=== PATIENT | female | born 1960 | race Caucasian/White ===

== ENCOUNTER 2019-10-27 10:29 | Observation (INO) | payer OTHER ==
[~2019-10-27] VITALS: Ht 165.1 cm; Wt 96.8 kg
[~2019-10-27 10:29] MED LIST: ALBUTEROL2.5 MG/0.5 INH; ASMANEX220 MC1 IH; ASPIR-LOW81 MG PO; ATIVAN0.5 MG PO; BENGAY113 GM TOP; BUDEPRION SR150 MG PO; CALCIUM 600 +1 EAC8 PO; CALCIUM CARBON500 MG PO; DAILY MULTIPLE1 EACH PO; DSS100 MG PO; ERGOCALCIF50000 UNIT PO; FAMOTIDINE20 MG PO; FLEXERIL10 MG PO; INSPIRATION1 EACH MC; LENZAPATCH 4%-1 EACH TOP; METHOCARBAMOL750 MG PO; METOPROLOL TART50 MG PO; MYVITALIFE1 EACH PO; NICORETTE4 M1 BUCCAL; NORCO 10-325 T1 EACH PO; PERCOCET 5-3251 EACH PO; PLAQUENIL200 MG PO; PREDNISONE5 MG PO; PYRIDIUM200 MG PO; SEREVENT DISKU1 PUFF IH; TRAMADOL HCL50 MG PO; ULTRAM50 MG PO
--- OUTSIDE RECORDS SUMMARY | 2019-10-27 10:32 | XMS ---
PreManage Notification: KMA MONTEMAYOR Security Director Of Graduate Admissions Events No recent Security Events currently on file [facility] There are no care providers on record at this time. Manoj has no Care Guidelines for this patient. Alvin VISIT COUNT (12 MO.) 1 ZULEIKA Jian TOTAL 1 NOTE: Visits indicate total known visits. ED/C VISIT TRACKING (12 MO.) 10/27/2019 10:30 ZULEIKA Velázquez OR TYPE: Emergency COMPLAINT: - POSSIBLE PNEUMONIA INPATIENT VISIT TRACKING (12 MO.) No inpatient visits to display in this time frame [id number]
[2019-10-27] MEDS ORDERED: CITALOPRAM HBR10 MG PO (10:46)
[2019-10-27] MEDS ORDERED: PROPRANOLOL HCL20 MG PO (10:47)
--- NOTE | 2019-10-27 15:28 | NUR ---
1515: Pt to room 107. RR 16 with a sat of 96% on 2l via nc and other vital signs stable. On arrival she asked about eating and states, "I'm starving". Pt spent several minutes ordering food for now, dinner and breakfast. Lung sounds coarse throughout. Pt states her breathing feels in no distress and "just a little tiny shortness of breath". Pt oriented to her room and the use of her call piedra.
--- NOTE | 2019-10-27 16:44 | NUR ---
Pt resting in her bed recieving a breathing tx at this time. Radha states her breathing continues to feel better with the treatments she has been receiving.
--- NOTE | 2019-10-27 17:03 | NUR ---
PT AMBULATED TO THE BR WITH ASSIST AND VOIDED. UA SENT TO THE LAB ORDERED. PT BACK TO BED AND HER RR INCREASED TO 26 WITH ACTIVITY. SHE IS NOW SITTING AT THE BEDSIDE EATING HER DINNER.
--- NOTE | 2019-10-27 17:45 | NUR ---
UA RESULTS CALLED TO DR SAWANT.
--- NOTE | 2019-10-27 18:07 | EKG ---
[facility] [address] [place], [place] [address] Signed Sinus rhythm with short VA Low voltage QRS Borderline ECG No previous ECGs available Confirmed by LULU SAWANT DO ([id number]) on 10/27/2019 6:06:53 PM Electronically Signed By: LULU SAWANT DO 10/27/19 1807 PATIENT NAME: KAM MONTEMAYOR Electrocardiogram DATE OF : 60 PHYSICIAN: LULU SAWANT DO REPORT #: [id number] REPORT IS CONFIDENTIAL AND NOT TO BE RELEASED WITHOUT AUTHORIZATION
--- NOTE | 2019-10-27 18:28 | NUR ---
PATIENT UP TO BATHROOM AND BACK TO BED, 1PA. CALL LIGHT IN REACH. NO FURTHER NEEDS AT THIS TIME.
--- NOTE | 2019-10-27 19:47 | NUR ---
ROOM CHECK. SBA TO THE BATHROOM. REFUSED TO USE WALKER THIS JUICE SCALEMAN OFFERED. PATIENT IS WITH 2L VIA NC. PATIENT IS BACK IN BED.
--- NOTE | 2019-10-27 20:08 | NUR ---
REGULAR FOND DU LAC COLA PROVIDED PER PATIENT'S REQUEST.
--- NOTE | 2019-10-27 21:35 | NUR ---
PT C/O CHRONIC BACK PAIN, DECLINES TO TAKE TYLENOL, DR SAWANT NOTIFIED VIA PHONE. NEW ORDERS OBTAINED FOR OXYCONTIN 10MG PO Q8H/PRN PAIN, TYLENOL 500MG PO Q6H PRN PAIN
--- NOTE | 2019-10-27 21:50 | NUR ---
O2 2L NC, COOP WITH ASSESSMENT, C/O BACK AND GENERAL PAIN 02/18, MEDICATED WITH OXYCONTIN 10MG PO. FLUIDS AND CALL LIGHT AT BEDSIDE
--- NOTE | 2019-10-27 23:42 | NUR ---
RESTING, O2 2L IN PLACE, NO FURTHER C/O PAIN.CALL LIGHT AT BEDSIDE, HOB ELEVATED
--- NOTE | 2019-10-28 01:08 | NUR ---
resting, o2 2l nc inplace, no resp distress, turns self in bed. call light at bedside
--- NOTE | 2019-10-28 03:43 | NUR ---
UP TO BR W/O ASSIST, VOIDED, BACK TO BED, FRESH WATER AND POP GIVEN ON REQUESTS. NO SOB NOTED WITH EXERTION. O2 2L NC, EXP WHEEZING/COARSE SOUNDS. NO C/O PAIN. CALL LIGHT AT BEDSIDE
--- NOTE | 2019-10-28 04:53 | NUR ---
PT AWAKE, AUGUSTINE RONKET FOR CHRONIC BACK DISCOMFORT. WAS MEDICATED 1X WITH OXYCONTIN 10MG PO BACK PAIN. ON O2 2LNC, RECEIVING NEB TX AND SOLUMEDROL LUNGS CONTINUE TO HAVE COARSE AND EXP WHEEZING SOUNDS. WAS SLIGHTLY SOB WHEN RETURNING FROM [place] ON SHIFT, MUCH IMPROVED AT THIS TIME. TOLERATING DIET AND FLUIDS WELL, NO N/V, REQUIRES 1PA/ TO INDEPENDENT IN ROOM. LEGS + EDEMA BILAT ELEVATED AT TIMES. WAS VERY ANXIOUS AT BEGINING OF SHIFT. CALMER NOW. COOP WITH PROCEDURES AND ASSESSMENT.
--- NOTE | 2019-10-28 06:21 | NUR ---
PT TURNS SELF IN BED, C/O BACK AND GENERAL 03/20 PAIN. MEDICATED WITH OXYCONTIN 10MG PO. WARM BLANKET TO BACK.
--- NOTE | 2019-10-28 07:34 | NUR ---
REPORT RECEIVED FROM GRISELDA ROWE. PT RESTING WITH EYES CLOSED.
--- NOTE | 2019-10-28 08:30 | NUR ---
Spoke with Radha. She lives in [place] and shares a trailer with her landlord. States health has deteriorated to the point she seldom leaves her trailer. Pt has poor finances as use [employer] program as well as the food [employer]ant[employer]. Pt. would like to dc to home on discharge. Gave her the name and address of the second food bank [facility] [place] [facility]. Also discussed [facility] transportation, pt was not aware she was elegible for transport. Discussed [facility] and I will place referral for resources. She states understanding and agrees to phone call from Kortney Howell.
--- NOTE | 2019-10-28 08:53 | NUR ---
pT SITTING UP IN BED, EATING BREAKFAST. ALERT, PLEASANT, COOPERATIVE. tOOK HER SCHEDULED MEDS WHOLE WITH WATER.
--- NOTE | 2019-10-28 11:02 | NUR ---
Pt in the room with respiratory therapist. Education about smoking cassation
--- NOTE | 2019-10-28 11:33 | NUR ---
1035: Inhaler instruction with spacer performed with patient. Written instruction provided with demonstration and demo back. Based on modfied dyspnea scale, history of multiple copd admission and history of asthma, it was recomended to clinical pharmacy that a LAMA be added to the patient's care plan at discharge. Pt already has ICS and LABA voerage ordered for home. Note sent to case managment to ask for pulmonary rehab order at discharge.
--- NOTE | 2019-10-28 11:52 | NUR ---
PT SITTING ON SIDE OF BED, GAZING OUT WINDOW. SHE IS PLEASANT, DID SAY THAT SHE FELT JUST A TINY BIT BETTER. ENCOURAGED PT TO CELEBRATE ANY LITTLE WIN, PT KNODDED IN AGREEMENT. PT THANKED ME FOR COMING IN, GAVE BLESSING. WILL FOLLOW NEEDED
[2019-10-28] MEDS ORDERED: OXYCODONE HCL10 MG PO (12:25)
[2019-10-28] MEDS ORDERED: PROAIR HFA8.5 GM INH (12:48)
[2019-10-28] MEDS ORDERED: DULERA 200 MCG/13 GM INH (12:48)
--- NOTE | 2019-10-28 13:00 | NUR ---
SPOKE WITH PT REGARDING MEDICATIONS. STATES SHE NEEDS THE OXY CHANGED IT IS NOT WHAT SHE TAKES AT HOME. READ THE MED FROM THE [facility] TO HER AND IT IS WHAT SHE TAKES AT HOME JUST A DIFFERENT BRAND. SHE STATES THAT HERS IS A DIFFERENT COLOR AND WORKS BETTER FOR HER. ALSO WOULD LIKE TO BE DISCHARGED IF POSSIBLE.
[2019-10-28] MEDS ORDERED: DOXYCYCLINE HY100 MG PO (13:41)
[2019-10-28] MEDS ORDERED: SPIRIVA18 MCG INH (13:43)
[2019-10-28] MEDS ORDERED: PREDNISONE20 MG PO (13:44)
[2019-10-28] MEDS ORDERED: IPRAT-ALBUT 0.5-3 ML INH (13:46)
[2019-10-28] MEDS ORDERED: LASIX20 MG PO (13:50)
[2019-10-28] MEDS ORDERED: POTASSIUM CHLO10 MEQ PO (13:50)
--- NOTE | 2019-10-28 14:04 | NUR ---
PATIENTS VITALS ARE DONE, PATIENT VISITING WITH DOCTOR
== END 2019-10-28 15:24 | disposition home or self-care (01) ==
LOC: ED 10:29 → MS 10:31
PROVIDERS: ADMIT Student in an Organized Health Care Education/Training Program
DX: J44.1 Chronic obstructive pulmonary disease with (acute) exacerbation (principal); J96.91 Respiratory failure, unspecified with hypoxia; N39.0 Urinary tract infection, site not specified; B19.20 Unspecified viral hepatitis C without hepatic coma; K74.60 Unspecified cirrhosis of liver; M06.9 Rheumatoid arthritis, unspecified; F39 Unspecified mood [affective] disorder; K21.9 Gastro-esophageal reflux disease without esophagitis; I10 Essential (primary) hypertension; F17.200 Nicotine dependence, unspecified, uncomplicated; Z79.899 Other long term (current) drug therapy; Z79.82 Long term (current) use of aspirin; Z88.1 Allergy status to other antibiotic agents; Z88.8 Allergy status to other drugs, medicaments and biological substances
CPT/HCPCS: 36415; 71045; 80053; 80074; 81001; 83605; 83735; 83880; 85025; 85651; 86140; 93005; 93010; 94640; 94664; 96360; 96374; 96375; 96376; 99285-25; 99406; G0378; J0696; J1100; J1940; J2930; J7030

== ENCOUNTER 2020-01-07 09:19 | Emergency (ER) | payer OTHER ==
[~2020-01-07] VITALS: Ht 165.1 cm; Wt 100.0 kg
[~2020-01-07 09:19] MED LIST changes: +CITALOPRAM HBR10 MG PO; +DOXYCYCLINE HY100 MG PO; +DULERA 200 MCG/13 GM INH; +IPRAT-ALBUT 0.5-3 ML INH; +LASIX20 MG PO; +OXYCODONE HCL10 MG PO; +POTASSIUM CHLO10 MEQ PO; +PREDNISONE20 MG PO; +PROAIR HFA8.5 GM INH; +PROPRANOLOL HCL20 MG PO; +SPIRIVA18 MCG INH
--- OUTSIDE RECORDS SUMMARY | 2020-01-07 09:22 | XMS ---
PreManage Notification: KAM MONTEMAYOR Security Social Media Content Specialist Events No recent Security Events currently on file CRITERIA MET - [facility] CARE PROVIDERS Name Unknown Clinic/Center 10/28/2019-Current PHONE: [phone] Manoj has no Care Guidelines for this patient. Care History Medical/Surgical 10/28/2019 [facility] \T\middot;\T\nbsp; PATIENT- [facility] ELIGIBLE \T\middot;\T\nbsp; PLEASE REFER PATIENT TO [facility] FOR NON EMERGENT MEDICAL NEEDS. \T\middot;\ T\nbsp; [facility] CAN SEE PATIENTS SAME DAY FOR APTS IF PATIENT CALLS FIRST THING IN THE MORNING. E.D. VISIT COUNT (12 MO.) 2 [facility] TOTAL 2 NOTE: Visits indicate total known visits. 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
[2020-01-07] MEDS ORDERED: PREDNISONE20 MG PO (11:42)
[2020-01-07] MEDS ORDERED: ONDANSETRON ODT8 MG PO (11:53)
--- NOTE | 2020-01-07 12:01 | EKG ---
[facility] [address] [place] [address] Signed Sinus rhythm with short VT Low voltage QRS Borderline ECG When compared with ECG of 27-OCT-2019 11:13, Nonspecific T wave abnormality, worse in Anterior leads Confirmed by ZULY BARRETT MD ([id number]) on 01/07/2020 12:01:04 PM Electronically Signed By: ZULY BARRETT MD 01/07/20 1201 PATIENT NAME: ALBINAKAMDavid POZO Electrocardiogram DATE OF : 60 PHYSICIAN: ZULY BARRETT MD REPORT #: [id number] REPORT IS CONFIDENTIAL AND NOT TO BE RELEASED WITHOUT AUTHORIZATION
== END 2020-01-07 12:35 | disposition home or self-care (01) ==
LOC: ED 09:19
DX: J44.1 Chronic obstructive pulmonary disease with (acute) exacerbation (principal); B19.20 Unspecified viral hepatitis C without hepatic coma; I10 Essential (primary) hypertension; G43.909 Migraine, unspecified, not intractable, without status migrainosus; Z87.891 Personal history of nicotine dependence; Z79.899 Other long term (current) drug therapy
CPT/HCPCS: 71045; 80053; 83880; 84484; 85025; 85610; 85730; 93005; 93010; 96374; 96375; 99285-25; J1940; J2405; J7512

== ENCOUNTER 2020-02-22 16:12 | Inpatient (IN) | payer OTHER ==
[~2020-02-22] VITALS: Ht 165.1 cm; Wt 91.6 kg
[~2020-02-22 16:12] MED LIST changes: +COLACE100 MG PO; -DSS100 MG PO; -DULERA 200 MCG/13 GM INH; +ONDANSETRON ODT8 MG PO; +WIXELA 500-501 EACH INH
--- OUTSIDE RECORDS SUMMARY | 2020-02-22 16:16 | XMS ---
PreManage Notification: KAM MONTEMAYOR Security Distiller Events No recent Security Events currently on file CRITERIA MET - [facility] CARE PROVIDERS Name Unknown Clinic/Center 10/28/2019-Current PHONE: [phone] Manoj has no Care Guidelines for this patient. Care History Medical/Surgical 10/28/2019 [facility] \T\middot;\T\nbsp; PATIENT- [facility] ELIGIBLE \T\middot;\T\nbsp; PLEASE REFER PATIENT TO [facility] FOR NON EMERGENT MEDICAL NEEDS. \T\middot;\ T\nbsp; [facility] CAN SEE PATIENTS SAME DAY FOR APTS IF PATIENT CALLS FIRST THING IN THE MORNING. E.D. VISIT COUNT (12 MO.) 3 [facility] TOTAL 3 NOTE: Visits indicate total known visits. 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 - Essential (primary) hypertension - Unspecified viral hepatitis C without hepatic coma - Migraine, unspecified, not intractable, without status migrai - Shortness of breath - Chronic obstructive pulmonary disease with (acute) exacerbati - Personal history of nicotine dependence 10/27/2019 10:30 ZULEIKA Velázquez OR TYPE: Emergency COMPLAINT: - POSSIBLE PNEUMONIA INPATIENT VISIT TRACKING (12 MO.) 10/27/2019 10:31 ZULEIKA Velázquez OR TYPE: Observation COMPLAINT: - COPD EXACERBATION DIAGNOSES: - Essential (primary) hypertension - Urinary tract infection, site not specified - Gastro-esophageal reflux disease without esophagitis - nursing home (current) use of aspirin - Allergy status to other antibiotic agents status - Nicotine dependence, unspecified, uncomplicated - Rheumatoid arthritis, unspecified - Unspecified cirrhosis of liver - Unspecified viral hepatitis C without hepatic coma - Allergy status to other drugs, medicaments and biological sub - Respiratory failure, unspecified with hypoxia - Other mcfp (current) drug therapy - Chronic obstructive pulmonary disease with (acute) exacerbati - Unspecified mood [affective] disorder [id number]
--- NOTE | 2020-02-22 23:15 | NUR ---
PT REPORT RECIEVED, CARE OF PT ASSUMED AT THIS TIME. 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 PT ABLE TO MOVE FROM STRETCHER OVER TO BED. SHORTNESS OF BREATH WITH EXERTION NOTED.
--- NOTE | 2020-02-23 | NUR ---
INITIAL ASSESSMENT COMPLETED. PT HAS SEVERE LOWER LEG EDEMA, RIGHT ARM EDEMA, AND GENERALIZED EDEMA IN OTHER LIMBS AND ABDOMEN. SKIN IS JAUNDICE, PALE COOL EXTREMITIES. FEET ARE COVERED IN DIRT. AFTER CLEANING FEET, MOTTLING NOTED IN BOTH FEET. KING CATHETER INSERTED. IV MAGNESIUM INFUSING. PLAN OF CARE DISCUSSED FOR NIGHT. ALL QUESTIONS ANSWERED. CALL LIGHT WITHIN REACH. NO FURTHER NEEDS AT THIS TIME.
--- NOTE | 2020-02-23 00:59 | NUR ---
PT GIVEN A SANDWICH BOX. IN ROOM WATCHING TV. REPORTS PAIN HAS DECERASED TO 5/10. CALL LIGHT WITHIN REACH. NO FURTHER NEEDS AT THIS TIME.
--- NOTE | 2020-02-23 01:33 | NUR ---
PT UP TO BSC, STAND BY ASSIST ONLY REQUIRED. EXERTIONAL SHORTNESS OF BREATH BUT SATURATIONS MAINTAINED ABOVE 92 PERCENT ON 2 L NC. BACK IN BED. CALL LIGHT WITHIN REACH. NO FURTHER NEEDS AT THIS TIME
--- NOTE | 2020-02-23 02:30 | NUR ---
IN ROOM FOR MEDICATION ADMINISTRATION. PT SLEEPING. BREATHING EVEN AND UNLABORED. CALL LIGHT WITHIN REACH. NO FURTHER NEEDS AT THIS TIME.
--- NOTE | 2020-02-23 03:54 | NUR ---
ASSESSMENT COMPLETED AT THIS TIME. PT SLEPT THROUGH ASSESSMENT. LUNGS SOUND COARSE THROUGHOUT WITH EXPIRATORY WHEEZES. NO CHANGE IN EDEMA NOTED. PT IS PRODUCING LARGE AMOUNTS OF ORANGE COLORED URINE. SPO2 95 PERCENT ON 1 L NC. MAGNESIUM FINISHED INFUSING, PT SALINE LOCKED AT THIS TIME. CALL LIGHT WITHIN REACH. NO FURTHER NEEDS AT THIS TIME.
--- NOTE | 2020-02-23 05:55 | NUR ---
PT REQUESTING PAIN MEDICATION FOR 810 BACK PAIN. MEDICATION (SEE [facility]). LAB IN ROOM AT THIS TIME TO DRAW BLOOD.
--- NOTE | 2020-02-23 06:15 | NUR ---
assisted pt with ambulating to bathroom. pt complains of right sided rib pain and back pain. pt up in chair to change position. call light within reach. no further needs at this time.
--- NOTE | 2020-02-23 08:00 | NUR ---
Pt in chair at this time, respirations even and non labored. Pt is on 1L oxygen, 96% 02 saturation. Pt reports pain in right upper abdominal region; reports this is chronic, however, has increased in intensity in last several days. Pearson intact, patent with clear orange/yellow urine. Pt is edematous; lower legs are 2+ pitting edema, and right arm is more swollen than left. Pt reports sob has improved with oxygen use. No needs at this time. Call light within reach.
--- NOTE | 2020-02-23 10:09 | NUR ---
Pt sitting up in chair at this time, respirations are even and non labored. Pt remains on 1L oxygen, 02 saturation is 94% at this time. Pt reports continued abdominal pain; oxycodone in use for this. Pt tolerated 75% of her breakfast. Bumex IV drip infusing at 2ml/hr. Pearson catheter emptied at this time. No needs at this time.
--- NOTE | 2020-02-23 11:10 | NUR ---
Pt resting in bed, respirations are even and non labored. Pt on 1L oxygen per nc, 02 saturation level of 96%. No distress noted at this time. Bumex IV drip infusing at 2ml/hr. Pearson intact, patent with clear yellow urine noted. Pt has no needs. Call light within reach.
--- NOTE | 2020-02-23 11:29 | NUR ---
ALANA from Dr. Rivas that pt is ok to take home diflucan po in which pt has with her. Pharmacy to inspect pt's medication.
--- NOTE | 2020-02-23 11:40 | EKG ---
[facility] [address] [place] [address] Signed Normal sinus rhythm Rightward axis Low voltage QRS Nonspecific T wave abnormality Abnormal ECG When compared with ECG of 07-JAN-2020 10:05, Questionable change in QRS axis Nonspecific T wave abnormality, worse in Inferior leads Nonspecific T wave abnormality now evident in Lateral leads Confirmed by ZULY BARRETT MD ([id number]) on 02/23/2020 11:40:15 AM Electronically Signed By: ZULY BARRETT MD 02/23/20 1140 PATIENT NAME: KAM MONTEMAYOR Electrocardiogram DATE OF : 60 PHYSICIAN: ZULY BARRETT MD REPORT #: [id number] REPORT IS CONFIDENTIAL AND NOT TO BE RELEASED WITHOUT AUTHORIZATION
--- NOTE | 2020-02-23 11:59 | NUR ---
Oxycodone 5mg po for reports of 7/10 back/right upper abdominal pain.
--- NOTE | 2020-02-23 12:30 | NUR ---
Assessment completed; pt resting in bed, respirations even and non labored, on 1L oxygen per nc. Pt has no distress noted. Upper lungs are clear, lower lobes bilat are coarse/diminished. Continuous bumex drip infusing in right ac; rate of 2ml/hr. Vital signs every 30min; bp and heart rate are stable-see charting for further details. Pearson patent with clear yellow urine noted. Pt's urine output is increased. No needs at this time. Personal supplies and call light within reach.
--- NOTE | 2020-02-23 13:02 | NUR ---
Medications reconciled using pharmacy records and patient interview. Patient is using her own inhalers and fluconazole (has 3) Please assure that they are returned at discharge
--- NOTE | 2020-02-23 13:38 | NUR ---
Requested medical records obtained via fax. Dr. Rivas notified.
--- NOTE | 2020-02-23 16:10 | NUR ---
DR. SAWANT CALLED AND GAVE ORDER TO STOP BUMEX DRIP FOR NOW, WILL REEVALUATE AFTER 1800 LAB RESULTS ARE BACK.
--- NOTE | 2020-02-23 16:12 | NUR ---
Bumex drip stopped at this time per Dr. Ballesteros's request.
--- NOTE | 2020-02-23 16:43 | NUR ---
Pt in chair resting, a&ox4. Pt remains on 1L of oxgen per nc, respirations even and non labored. Pt reports continued pain to right upper quadrant. Pt SL at this time. Edema imrproving. Pt has good urine output. Vital signs are stable at this time. Personal supplies and call light within reach.
--- NOTE | 2020-02-23 18:25 | NUR ---
Oxycodone 5mg po admin for reports of 8/10 back pain.
--- NOTE | 2020-02-23 19:30 | NUR ---
REPORT RECEIVED FROM DAY SHIFT RN. PT IS SITTING UP IN CHAIR, WATCHING TV AND EATING DINNER. C/O HAND CRAMPING. MORE COFFEE GIVEN PER REQUEST. ALERT AND ORIENTED, CALL LIGHT IN LAP.
--- NOTE | 2020-02-23 20:15 | NUR ---
PT CONT TO SIT UP IN CHAIR WORKING ON EATING DINNER. STATES SHE IS HAVING A SLOW TIME BECAUSE OF HER HANDS CRAMPING. DR SAWANT IN TO UNIT TO ROUND, INFORMED OF HAND CRAMPING-PLAN TO HOLD DIEGEORGE JOHN.
--- NOTE | 2020-02-23 20:43 | NUR ---
PT UP TO BR TO SIT FOR A WHILE. HR REMAINS IN 60'S.
--- NOTE | 2020-02-23 21:00 | NUR ---
BACK TO BED. PT STATED SHE FELT WEAK AFTER SITTING ON TOILET, HAD SMALL STOOL. RT IN TO WORK WITH PT.
--- NOTE | 2020-02-24 00:34 | NUR ---
IN TO DO ASSESSMENT, PT REQUESTS PAIN MEDICINE FOR ABD/BACK PAIN 03/20. OXYCODONE GIVEN. PT GIVEN FRESH ICE, DENIES OTHER NEEDS. WANTING TO TRY TO SLEEP FOR THE NIGHT.
--- NOTE | 2020-02-24 02:30 | NUR ---
PT HAS BEEN RESTFUL/SLEEPING, HR 60'S SPO2 93% ON 1L.
--- NOTE | 2020-02-24 05:30 | NUR ---
LAB IN TO DRAW. PT UP TO CHAIR FOR COMFORT, STATES BACK IS PAINFUL AND REQUESTS OXYCODONE SOON IT IS AVAILABLE.
--- NOTE | 2020-02-24 06:11 | NUR ---
KING EMPTIED 500ML PHILIPPE URINE.
--- NOTE | 2020-02-24 07:59 | NUR ---
PT AT THIS TIME IS EATING BREAKFAST. PT WILL GET ECHO AFTERWARDS. NO NEW CONCERNS NOTED AT THIS TIME.
--- NOTE | 2020-02-24 09:00 | NUR ---
In and spoke with Radha. She states she lives in [place] in a mobile home with 5 steps. Lives next door to her friend Geovanny, who assists her. She use a cane, but would like a walker. States she struggles to get up her steps. Isis Brandt is her pcp and she uses DMAP. Wants to go home on dc. Requested Dr. Ballesteros order PT and OT to assess if she can care for self at home and need for DME.
--- NOTE | 2020-02-24 09:18 | NUR ---
ALL LOBES HAVE EXPIRATORY WHEEZING PRESENT AND ARE COARSE. PT STILL HAS SIGNIFICANT EDEMA PRESENT IN HER ARMS AND LEGS. ABD IS SOFT TO TOUCH AND NON-TENDER. ABD SOUNDS ARE PRESENT. V/S ARE WDL. PT IS AAOX4. OVERALL STRENTH IS +4, URINE OUTPUT IS ADEQUATE SO FAR.
--- NOTE | 2020-02-24 10:47 | NUR ---
PT AT THIS TIME IS SLEEPING. V/S WDL OVERALL. NO NEW CONCERNS NOTED AT THIS TIME.
--- NOTE | 2020-02-24 12:00 | NUR ---
IN PT ROOM. PT IS GETTING HER HAIR/ BODY WASHED. LINNENS AND GOWN CHANGED. PT TO EAT LUNCH. V/S WDL AT THIS TIME. PAIN 05/21. PRN OXY TO BE GIVEN.
--- NOTE | 2020-02-24 13:25 | NUR ---
GRISELDA DOVE REQUESTED I LET PT SLEEP. WILL CONE BACK AGAIN
--- NOTE | 2020-02-24 14:00 | NUR ---
ALL LOBES HAVE EXPIRATORY WHEEZING PRESENT. EDEMA OVERALL IS UNCHANGED SINCE START OF SHIFT. ABD IS TENDER STATED BY PT. NO CHANGES TO ABD WAS NOTED AT THIS TIME. PT AT TIMES DAYA WITH A HR IN THE 50'S. PT STILL ON 2L O2 AT THIS TIME. PT UP IN CHAIR. NO NEW CONCERNS NOTED AT THIS TIME.
--- NOTE | 2020-02-24 15:34 | NUR ---
PT AT THIS TIME IS STILL SITTING UP IN CHAIR. PHYSICAL THERAPY WORKED WITH PT ALSO. V/S ARE WDL, URINE OUTPUT IS GOOD.
--- NOTE | 2020-02-24 15:50 | NUR ---
PT STILL UP IN CHAIR. HELPED PT TO REPOSITION HERSELF. CALL BARNEY WITHIN REACH. NO NEW CONCERNS NOTED.
--- NOTE | 2020-02-24 18:20 | NUR ---
PT NOW TO TRANSFER TO MED SURG.
--- NOTE | 2020-02-24 18:36 | NUR ---
Pt arrived to unit from CCU. Pt a&ox4, on 2l oxygen per nc, resp even and non labored. Pt pain level of 7/10 back and ruq pain. Pearson intact, patent clear yellow urine noted. Pt eating dinner. VS taken and are stable. Pt oriented to room and call light.
--- NOTE | 2020-02-24 19:41 | NUR ---
BEDSIDE REPORT RECEIVED FROM GRISELDA BROOKS. pt UP IN CHAIR, EYES CLOSED, APPEARS TO BE SLEEPING. 2L OXYGEN BY NC IN PLACE. KING DRAINING YELLOW URINE. CALL LIGHT IN REACH.
--- NOTE | 2020-02-24 20:23 | NUR ---
pt ASSESSMENT COMPLETE. VSS. 1PA W FWW TO BED FROM CHAIR. LUNG SOUNDS CLEAR THROUGHOUT, DIMINISHED IN BASES. KING EMPTIED, CATH CARE COMPLETE. 2+ EDEMA, BLE, UPPER THIGHS BILATERALLY. ABD DISTENDED, TENDER W PALPATION. pt C/O 7.5/10 PAIN IN BACK, UPPER ABD. NO ADDITIONAL REQUESTS. CALL LIGHT IN REACH, pt VERBALIZES UNDERSTANDING TO USE CALL LIGHT BEFORE GETTING OUT OF BED.
--- NOTE | 2020-02-24 22:56 | NUR ---
pt RESTING IN BED WITH EYES CLOSED, SNORING, BREATHING UNLABORED. 2L OXYGEN BY NC IN PLACE.
--- NOTE | 2020-02-25 01:09 | NUR ---
pt SLEEPING, AWAKENS TO VOICE. GRIMACING, C/O PAIN 7/10 IN BACK. PRN PAIN MEDICATION ADMINISTERED. WARM PACKS PROVIDED. pt ASSISTED TO REPOSITION. ASSESSMENT COMPLETE. LUNG SOUNDS WHEEZES HEARD THROUGHOUT. EDEMA IMPROVED BILATERALLY THIGHS, LOWER EXTREMITY FROM START OF SHIFT. KING EMPTIED. CALL LIGHT IN REACH.
--- NOTE | 2020-02-25 03:00 | NUR ---
pt SLEEPING, SNORING. OXYMASK REAPPLIED TO pt. pt DOES NOT WAKE. CALL LIGHT IN REACH. BREATHING UNLABORED.
--- NOTE | 2020-02-25 05:55 | NUR ---
CALL LIGHT ANSWERED. pt WONDERING WHEN BREAKFAST WAS, MENU IN REACH. VSS, ON 2L OXYGEN BY OXYMASK, SPO2 93%. pt RATES PAIN 8/10 IN BACK AND UPPER ABDOMEN. STANDING WEIGHT 99.4 KG. KING EMPTIED. CALL LIGHT IN REACH. DENIES ADDITIONAL REQUESTS AT THIS TIME.
--- NOTE | 2020-02-25 06:23 | NUR ---
pt RESTED WELL THROUGHOUT SHIFT. 2L OXYGEN BY NC IN PLACE TO MAINTAIN SPO2 >92%. 1PA WITH FWW. KING DRAINING QS OUTPUT. IV LASIX X 1 THIS SHIFT ORDERED. 1800 ML FLUID RESTRICTION, pt TOLERATING/FOLLOWING WELL. STANDING WEIGHT 99.4 KG, DOWN FROM 103.5 KG PREVIOUS SHIFT. EDEMA IMPROVED BLE THIS SHIFT.
--- NOTE | 2020-02-25 07:20 | NUR ---
Patient has own medications in her cubby, 3 inhalers that she is using and fluconazole tablets that have been dc'd. Please assure that they are returned to her at discharge
--- NOTE | 2020-02-25 07:35 | NUR ---
0717: Report received from Rosita VILLALOBOS. Pt resting in her bed and states she is having some chronic back and abd pain which Rosita states she will medicate her for pain at this time. Call piedra within reach and she denies any other problems at this time.
--- NOTE | 2020-02-25 09:06 | NUR ---
PT RESTING IN BED AND STATES HER BREATING FEELS OKAY AT THIS TIME, SAT 95% ON 2L. NO OTHER NEW COMPLAINTS AT THIS TIME. KING DRAINING YELLOW URINE WITHOUT DIFFICULTY. SEE ASSESSMENT.
--- NOTE | 2020-02-25 09:15 | NUR ---
SCD's on and running.
--- NOTE | 2020-02-25 09:49 | NUR ---
PATIENT SITTING UP IN BED TAKING HER BREAKFAST. VITAL SIGNS AND I&O DONE. CALL LIGHT WITHIN REACH. NO OTHER NEEDS AT THIS TIME
--- NOTE | 2020-02-25 10:00 | NUR ---
In and spoke with Radha. She is eating breakfast. Had in depth converstion regarding how she cares for herself at home. She does not feel safe to dc to home as she struggles with her steps, has difficulty cooking, and caring for self. She agrees she would need to go to a SNF. Would like to stay here in town. Informed I will send her chart to T. She states she wants to stay just long enough to rehab and walk without problems.
--- NOTE | 2020-02-25 10:42 | NUR ---
Chart faxed to [facility] for review following discussion with Radha.
--- NOTE | 2020-02-25 11:06 | NUR ---
Face sheet, lab, H&P, progress notes, Meds, PT/OT eval sent to Marian at [facility].
--- NOTE | 2020-02-25 11:11 | NUR ---
Pt sleeping at this time.
--- NOTE | 2020-02-25 11:20 | NUR ---
PT CALLED TO REQUEST ASSISTANCE. ON ARRIVAL TO THE ROOM NOTED PT HAD BROWN WET AREA ON BED BETWEEN HER LEGS. PT REPORTS THAT SHE HAD HER COFFEE SETTING BETWEEN HER LEGS THEN FELL ASLEEP AND THE COFFEE SPILLED. PT ASSISTED TO RECLINER THEN FULL BED LINEN CHANGE COMPLETED.
--- NOTE | 2020-02-25 11:48 | NUR ---
Pt sitting in her chair and is watching tv. She states she is doing ok and that her pain is under control. Radha states she is going to finish her coffee and than she is going to work with physical therapy. Call piedra within reach, she denies any needs and states her breathing feels ok.
--- NOTE | 2020-02-25 13:26 | NUR ---
GRISELDA LOPEZ MENTIONED THAT PT WAS ASLEEP, AND REQUESTED I NOT WAKE PT UP AT THIS TIME. WILL CHECK BACK
--- NOTE | 2020-02-25 13:57 | NUR ---
PATIENT SITTING UP IN CHAIR TAKING HER LUNCH. VITAL SIGNS AND I&O DONE. CALL LIGHT WITHIN REACH. NO OTHER NEEDS AT THIS TIME
--- NOTE | 2020-02-25 14:37 | NUR ---
IN ROOM ASSESSING PT AND DISCUSSING PLAN OF CARE.
--- NOTE | 2020-02-25 14:43 | NUR ---
PT REPORTS PAIN 8/10, ADMINSITERED 5MG PO OXYCODONE PRN AT THIS TIME.
--- NOTE | 2020-02-25 14:53 | NUR ---
CALL LIGHT ANSWERED. PATIENT SITTING UP IN CHAIR. PATIENT GOES TO USE THE BATHROOM. ONE PERSON ASSISTING. CALL LIGHT WITHIN REACH. NO OTHER NEEDS AT THIS TIME
--- NOTE | 2020-02-25 15:05 | NUR ---
PT STATES HER PAIN IS A 9/10 BUT WAS VERY RECENTLY TREATED FOR PAIN AND IT SOULD START WORKING SHORTLY WHICH THE PT STATES SHE UNDERSTANDS. SEE EMAR. PT NOW ATTEMPTING TO HAVE A BM. SEE ASSESSMENT.
--- NOTE | 2020-02-25 15:30 | NUR ---
Notified by Marian at [facility], they will accept this pt. when she is ready for discharge. Request I inform, pt will be on isolation for 14 days and will not be able to leave the building to smoke or go to Dr. sandhu. Informed pt is on a nicotene patch here.
--- NOTE | 2020-02-25 17:04 | NUR ---
Pt states her pain is tolerable at 7/10. She continues to denie any sob.
--- NOTE | 2020-02-25 17:09 | NUR ---
lab unable to collect blood, rn into attempt. one miss, able to manipulate s/l to give blood return, blood obtained and walked down to lab.
--- NOTE | 2020-02-25 17:16 | NUR ---
PATIENT SITTING UP IN CHAIR. VITAL SIGNS AND I&O DONE. CALL LIGHT WITHIN REACH. NO OTHER NEEDS AT THIS TIME
--- NOTE | 2020-02-25 17:24 | NUR ---
Pt sleeping at this time.
--- NOTE | 2020-02-25 17:37 | NUR ---
Pt sleeping in her chair at this time, call piedra within reach.
--- NOTE | 2020-02-25 18:38 | NUR ---
AMMONIA LEVEL, AST AND ALT RESULTS CALLED TO DR SAWANT.
--- NOTE | 2020-02-25 19:45 | NUR ---
BEDSIDE REPORT RECEIVED FROM GRISELDA LOPEZ. pt UP IN CHAIR, WEB MARKETING INTERN IN ROOM ATTEMPTING TO DRAW LABS, UNABLE TO DRAW LABS. LABS DRAWN BY THIS RN.
--- NOTE | 2020-02-25 20:56 | NUR ---
1PA WITH FWW TO RESTROOM FOR FORMED BM. pt BACK IN BED, KING CARE COMPLETE. ASSESSMENT COMPLETE. LUNGS COARSE ON EXPIRATION. 2L OXYGEN BY NC IN PLACE SPO2 93%. 2+ EDEMA BLE. pt IS ALERT AND ORIENTED TO ALL. JAUNDICE IN COLOR. CALL LIGHT IN REACH.
--- NOTE | 2020-02-25 23:23 | NUR ---
CHECKED ON pt. RESTING IN BED WITH EYES CLOSED. 2L OXYGEN BY NC IN PLACE. CALL LIGHT IN REACH. SCDS ON.
--- NOTE | 2020-02-26 01:26 | NUR ---
CHECKED ON pt. RESTING IN BED WITH EYES CLOSED, APPEARS TO BE SLEEPING. RESPIRATIONS EVEN AND UNLABORED. 2L OXYGEN BY NC IN PLACE.
--- NOTE | 2020-02-26 02:56 | NUR ---
pt SLEEPING, OXYGEN OFF AT THIS TIME. AWAKNES TO VOICE. 2L OXYGEN BY OXYMASK APPLIED. pt RATES PAIN 7/10 IN BACK AND ABD UPON AWAKENING. PRN PAIN MEDICATION AND WARM PACKS PROVIDED. ASSESSMENT COMPLETE. LUNGS COARSE THROUGHOUT, EXW HEARD BILATERALLY. pt DENIES SOB. EDEMA IMPROVED FROM START OF SHIFT, NOTED IN BLE. CALL LIGHT IN REACH.
--- NOTE | 2020-02-26 05:39 | NUR ---
pt SLEEPING WITH OXYGEN OFF, SPO2 79-80% UPON AWAKENING ON RA. 2L OXYGEN BY NC REAPPLIED. pt ORIENTED TO ALL. VS COMPLETE. KING EMPTIED, CONCENTRATED URINE. INSULATION TECHNICIAN IN ROOM.
--- NOTE | 2020-02-26 05:46 | NUR ---
STANDING WEIGHT 97.7 KG, DOWN FROM 99.4 KG PREVIOUS SHIFT. pt SITTING UP IN BED, 2L OXYGEN BY NC IN PLACE. CALL LIGHT IN REACH.
--- NOTE | 2020-02-26 06:28 | NUR ---
pt DESATS QUICKLY ON RA, SPO2 WNL ON 2L OXYGEN BY NC OR OXYMASK. PRN OXYCODONE FOR PAIN CONTROL. pt JAUNDICED. QS OUTPUT FROM KING CATHETER, CATHETER CARE THIS SHIFT. 1P SBA TO RESTROOM FOR ONE FORMED BM. ALERT AND ORIENTED TO ALL. RESTED WELL THIS SHIFT. STANDING WEIGHT 97.7KG DOWN FROM 99.4KG PREVIOUS SHIFT.
--- NOTE | 2020-02-26 08:08 | NUR ---
PT SITTING UP IN BED FOR BKF. PT ABLE TO TAKE ALL HER AM MEDICATIONS. KING CATHETER DRAINING PHILIPPE THICK IN APPERANCE URINE.
--- NOTE | 2020-02-26 10:00 | NUR ---
Spoke with aRdha. She complains of fatigue today. UPdated, she was accepted by [facility] when she is discharged and cleared by hospitalist.
--- NOTE | 2020-02-26 10:49 | NUR ---
WHEN STAFF ENTERS THE ROOM PT APPEARS TO BE SLEEPING. PT TRYING TO EAT BKF BUT FALLS BACK TO SLEEP. PT UP TO BS COMMODEX2 HAD LARGE BM. PT WASHED UP AND BACK TO BED. PT WORKING WITH PT AT THIS TIME.
--- NOTE | 2020-02-26 15:16 | NUR ---
PT AWAKE AT THIS TIME, HAS NOT TOUCHED HER LUNCH YET, C/O TAKING THE LACTOUSE, "I DON'T FEEL I NEED IT NOW" PT THINKS SHE HAD BM NOW IN BED. MEDICATED FOR PAIN 5MG OXY PO GIVEN AT THIS TIME FOR BACK AND ABD APIN.
--- NOTE | 2020-02-26 15:26 | NUR ---
PT WAS MEDICATED WITH 5MG OXY FOR PAIN. CONTIOUES TO TRY TO EAT HER LUNCH
--- NOTE | 2020-02-26 17:51 | NUR ---
PT UP TO THE BATHROOM, HAVING BM AND CATHETHER CARE COMPLETED. PT STOOD UP AND THEN HAD TO GO AGAIN. REMAINS IN THE BATHROOM CALL LIGHT WITHIN REACH.
--- NOTE | 2020-02-26 19:27 | NUR ---
SHIFT REPORT RECEIVED FROM HA VILLALOBOS. PT SITTING IN CHAIR, EATING DINNER. NO NEEDS AT THIS TIME. CALL LIGHT IN REACH.
--- NOTE | 2020-02-26 19:33 | NUR ---
PT UP IN THE CHAIR EATING DINNER AT THIS TIME.
--- NOTE | 2020-02-26 21:55 | NUR ---
ASSISTED PT TO BSC AND BACK TO CHAIR. SHE DENIES FURTHER NEEDS AT THIS TIME. CALL LIGHT IS WITHIN REACH. RT IS IN ROOM WITH PT NOW.
--- NOTE | 2020-02-26 22:37 | NUR ---
ASSESSMENT, VS AND I&O COMPLETED. SCHEDULED AND PRN PAIN MED PROVIDED. PAIN IN ABD AND BACK 04/20. PT HAS HAD MULTIPLE LARGE BM TODAY. IVs WNL, CDI, FLUSHED WELL. EDEMA NOTED IN BUE AND BLE. LUNGS COURSE IN ALL LOBES. NC@ 2L, SPO2 94%. NO OTHER NEEDS AT THIS TIME. CALL LIGHT IN REACH.
--- NOTE | 2020-02-27 00:07 | NUR ---
PT RESTING IN BED, EYES CLOSED. RR EVEN, UNLABORED. NC @ 2L. CALL LIGHT IN REACH.
--- NOTE | 2020-02-27 02:00 | NUR ---
PT RESTING IN BED, EYES CLOSED. RR EVEN, UNLABORED. CALL LIGHT IN REACH.
--- NOTE | 2020-02-27 03:46 | NUR ---
PT RESTING IN BED, EYES CLOSED. RR EVEN, UNLABORED. CALL LIGHT IN REACH.
--- NOTE | 2020-02-27 05:07 | NUR ---
PT SLEPT MOST THE NIGHT. PRIOR TO BED SHE HAD MULTIPLE LIQUID BMs. LUNGS COURSE IN ALL LOBES. PAIN MANAGED WITH PRN PAIN MED. PT TOLERATED FLUID RESTRICTION AND DIET WELL. VSS, UOS. NC @ 2L, SPO2 TRENDING 92-94%. URINE PHILIPPE, CLEAR, WITHOUT ODOR. IVs WNL, FLUSHED WELL. KING WNL. EDEMA NOTED IN BUE, BLE AND ABD.
--- NOTE | 2020-02-27 05:58 | NUR ---
VS AND I&O COMPLETED. DW 92.2kg. LUNGS COURSE IN ALL LOBES. BUE, BLE AND ABD EDEMA UNCHANGED. IVs WNL. KING CARE PROVIDED, WNL. PAIN IN BACK AND ABD 02/18, PRN PAIN MED PROVIDED. ASSESSMENT COMPLETED. PT UP TO BR, CALL LIGHT IN REACH.
--- NOTE | 2020-02-27 06:20 | NUR ---
PT CALLED FOR ASSISTANCE BACK TO BED FROM RESTROOM. SHE DENIES FURTHER NEEDS AT THIS TIME. CALL LIGHT IS CLOSE.
--- NOTE | 2020-02-27 08:00 | NUR ---
PT WAS AWAKE UP IN THE CHAIR THIS AM. PT ATE BKF AND TOLERATED IT WELL.
--- NOTE | 2020-02-27 09:10 | NUR ---
Spoke with KAM. She is slightly jaundiced today. Eating breakfast. Asked if she would like to follow up with oncology as this was noted in the chart. States she will follow up after she discharges from the detention.
--- NOTE | 2020-02-27 09:41 | NUR ---
Anel from [facility] called and update given.
--- NOTE | 2020-02-27 10:00 | NUR ---
PT REMAINS UP IN THE CHAIR, IV MAG GIVEN AND INFUSING WELL.
--- NOTE | 2020-02-27 11:53 | NUR ---
PT REMAINS UP IN THE CHAIR, EATING LUNCH LEFT MIDLINE HEP LOCKED AT THIS TIME. PT DENIES ANY C/O'S AT THIS TIME.
--- NOTE | 2020-02-27 13:46 | NUR ---
PT AMBULATED TO THE BATHROOM KING CATHETER REMOVED AT THIS TIME. OFFERED PT A SHOWER SHE REFUSED AT THIS TIME. ASKED FOR PAIN MEDICATIONS. HAVING BM'S AT THIS TIME WITH LOTS OF GAS. ORAL MEDS GIVEN.
--- NOTE | 2020-02-27 14:08 | NUR ---
PT SHOWERD AND KING CATHETER REMOVED. PT THEN BACK TO THE [facility] THE [facility] AND DID WELL WITH THIS ACTIVITY.
--- NOTE | 2020-02-27 15:43 | NUR ---
PT HAS BEEN SLEEPING AWAKEN FOR ASSESSMENT AND MEDICATIONS.
--- NOTE | 2020-02-27 17:03 | NUR ---
PT WAS SLEEPING WHEN CANDY BUTCHER ENTERED THE ROOM. SAT HER UP IN BED AND FIXED HER TRAY FOR HER. PT AWAKE AT THIS TIME AND FEEDING SELF DINNER. NO C/O'S OF PAIN AT THIS TIME.
--- NOTE | 2020-02-27 18:23 | NUR ---
PT IS STILL EATING HER DINNER AT THIS TIME. TV IS ONE AND SHE IS AWAKE PICKING AT HER FOOD.
--- NOTE | 2020-02-27 20:30 | NUR ---
PER DR SAWANT, NO NEED TO NOTIFY HIM OF LOW URINE OUTPUT TONIGHT UNLESS PT IS SYMPTOMATIC/ LOW BP. PRIMARY RN NOTIFIED.
--- NOTE | 2020-02-27 20:44 | NUR ---
PATIENT JUST UP TO THE BATHROOM WITH FFW AND 1PA AND BACK TO BED. ICE WATER FILLED. CALL LIGHT IN REACH.
--- NOTE | 2020-02-27 22:16 | NUR ---
PATIENT GIVEN 5MG OXYCODONE FOR HER ABD PAIN PER HER REQUEST TO HELP HER SLEEP. CALL LIGHT IN REACH.
--- NOTE | 2020-02-28 00:01 | NUR ---
HELPED PT TO THE BATHROOM WITH HER FWW. SHE WILL CALL WHEN SHE IS DONE.
--- NOTE | 2020-02-28 00:07 | NUR ---
HELPED PT BACK TO BED WITH HER FWW. SCD'S PUT BACK ON. BEDSIDE TABLE AND CALL LIGHT IN REACH.
--- NOTE | 2020-02-28 02:24 | NUR ---
PATIENT RESTING QUIETLY ON HER LEFT SIDE, RESPIRATIONS REGULAR AND EVEN, EYES CLOSED. CALL LIGHT IN REACH.
--- NOTE | 2020-02-28 03:30 | NUR ---
Took pt to the restroom, pt sitting on side of bed.
--- NOTE | 2020-02-28 03:47 | NUR ---
PATIENT CALLED AND IS SITTING AT BEDSIDE REQUESTING PAIN MEDICATION FOR ABD PAIN 8/10. 5MG OXYCODONE GIVEN AND PATIENT LAYED BACK DOWN AND SCD'S TURNED BACK ON AND PATIENT IS GOING TO TRY AND GET SOME MORE SLEEP. CALL LIGHT IN REACH.
--- NOTE | 2020-02-28 04:48 | NUR ---
PATIENT HAS REST WELL MOST OF THE NIGHT OTHER THAN USING THE RESTROOM AND GETTING OXYCODONE TWICE FOR ABD PAIN OF 8/10 THROUGH THE NIGHT. RESTING AT THIS TIME. CALL LIGHT IN REACH.
--- NOTE | 2020-02-28 07:15 | NUR ---
received report from jaspal cordero. pt appears to be resting comfortably with respirations noted
--- NOTE | 2020-02-28 08:40 | NUR ---
IN PTS ROOM TO GIVE MORNING MEDS AND DO ASSESSMENT. PT REPORTING PAIN AND IS CURRENTLY MOANING. PT ABLE TO MOVE WITH FWW WITH NO BALANCE ISSUES. DISCUSSED WITH PT WHEN NEXT PAIN MED IS DUE AND PT UNDERSTANDING AND COMPLIANT WITH CARE AT THIS TIME
--- NOTE | 2020-02-28 10:06 | NUR ---
PT APPEARS TO BE RESTING COMFORTABLY WITH RESPIRATIONS NOTED. CALL LIGHT WITHIN REACH AT THIS TIME
--- NOTE | 2020-02-28 11:18 | NUR ---
PROVIDED PT WITH 5MG OXY DUE TO PT STATING THAT SHE WAS HAVING PAIN 04/20. THIS RN HANGING MAGNESIUM IV AND PT BACK TO RESTING AT THIS TIME WITH RESPIRATIONS NOTED
--- NOTE | 2020-02-28 12:48 | NUR ---
PATIENT IS UP IN HER CHAIR EATING HER LUNCH. BED LINENS CHANGED.
--- NOTE | 2020-02-28 12:51 | NUR ---
PATIENT WASHED HER FACE THIS MORNING. BUT HASN'T BRUSHED HER TEETH YET. WILL CHECK BACK.
--- NOTE | 2020-02-28 14:30 | NUR ---
IN PTS ROOM TO GIVE AFTERNOON MEDS. PT REPORTING PAIN 04/20 DISCUSSED WITH PT THAT HER PAIN MEDS ARENT DUE YET. PT AGREEABLE TO THIS AND PUT THE TIME FOR THE MED ON THE WHITEBOARD
--- NOTE | 2020-02-28 20:00 | NUR ---
PATIENT UP TO THE BATHROOM WITH 1PSBA AND FWW AND THEN TO BED, WITH CALL LIGHT IN REACH.
--- NOTE | 2020-02-28 20:59 | NUR ---
FUR SEWER ROUNDING NOTE. PT RESTING IN BED WITH EYES CLOSED. DOES NOT WAKE WHILE ASSET MANAGEMENT LEAD ENTERS THE ROOM. CALL LIGHT IN REACH. WHITE BOARD UDPATED.
--- NOTE | 2020-02-28 22:25 | NUR ---
PATIENT RESTING QUIETLY AT THIS TIME WITH 1L/NC ON, RESPIRATIONS REGULAR AND EVEN, EYES CLOSED, CALL LIGHT IN REACH.
--- NOTE | 2020-02-28 23:18 | NUR ---
PATIENT RESTING QUIETLY IN SEMI-FOWLERS POSITION, EQUAL, BUT SHALLOW RESPIRATIONS. REMAINS ON 1L/NC, EYES CLOSED AND CALL LIGHT IN REACH.
--- NOTE | 2020-02-29 01:07 | NUR ---
PATIENT RESTING QUIETLY IN BED AFTER USING THE RESTROOM WITH 1PSBA AND FWW AND GETTING 5MG OXYCODONE FROM THE CHARGE NURSE FOR ABD PAIN. CALL LIGHT IN REACH.
--- NOTE | 2020-02-29 03:15 | NUR ---
PAATIENT UP TO THE BATHROOM TO VOID WITH 1PSBA AND FWW AND THEN BACK TO BED WITH THE SAME ASSISTANCE. SCD'S ON, NO C/O PAIN, ON 1L/NC, LIGHTS TURNED DOWN SO PATIENT COULD GO BACK TO SLEEP AND CALL LIGHT IS IN REACH.
--- NOTE | 2020-02-29 04:30 | NUR ---
PATIENT HAS RESTED WELL MOST OF THE NIGHT, EXCEPT FOR WHEN SHE HAS NEEDED TO USE THE REST ROOM AND ONLY HAS NEEDED 1 OXYCODONE TONIGHT SO FAR FOR PAIN. PATIENT CONTINUES TO WEAR SCD'S AND 1L/NC OF O2. RESPIRATIONS ARE REGULAR, BUT SHALLOW AT THIS TIME, EYES CLOSED, CALL LIGHT IN REACH.
--- NOTE | 2020-02-29 06:20 | NUR ---
PATIENT AMBULATED TO BATHROOM AND BACK TO BED. PATIENT COMPLAINS OF PAIN, REQUESTING MEDICATION, RN NOTIFIED. CALL LIGHT IN REACH. NO FURTHER NEEDS AT THIS TIME.
--- NOTE | 2020-02-29 07:45 | NUR ---
received report from jaspal cordero. pt appears to be resting at this time with respirations noted
--- NOTE | 2020-02-29 08:03 | NUR ---
PATIENT IS SLEEPING. SET HER SHOWER UP. ALSO PUT A BLANKET ON HER CHAIR AND A NEW COURTNEY. WILL COME BACK AND CHECK ON HER WHEN HER FOOD GETS HERE.
--- NOTE | 2020-02-29 09:04 | NUR ---
GOT PATIENT UP FOR BREAKFAST. PATIENT SITTING UP IN HER CHAIR EATING. WHILE I WAS IN HER SHE HAD TO GO TO THE BATHROOM. NOW SHE IS BACK IN HER CHAIR EATING HER BREAKFAST. CHANGED BED LINENS. SHE SAID SHE WOULD TAKE A SHOWER LATER TODAY.
--- NOTE | 2020-02-29 11:20 | NUR ---
ASSISSTED PT BACK TO THE CHAIR. PT ABLE TO BRUSH HER TEETH WHILE UP TO THE RESTROOM
--- NOTE | 2020-02-29 13:07 | NUR ---
IN PTS ROOM TO GIVE AFTERNOON MEDS AND DO ASSESSMENT
--- NOTE | 2020-02-29 15:21 | NUR ---
PT REPORTING 8.5/10 PAIN AND IS MOANING IN BED. EARLIER THIS PT STATED TO THIS NURSE THAT HER BASELINE PAIN IS 8/10. PROVIDED PT WITH 5MG OF OXY. PT QUESTIONED WHY SHE WAS ONLY GETTING 5MG WHEN SHE NORMALLY TAKES 10MG AT HOME
--- NOTE | 2020-02-29 18:11 | NUR ---
TRANSFERED PT BACK TO BED. PT DISCUSSING IF SHE WANTS TO TAKE A SHOWER OR NOT, PT STATING THAT SHE WANTS TO WAIT FOR MORE PAIN MEDS. DISCUSSED WITH PT THAT SHE DOESN'T HAVE PAIN MEDS DUE UNTIL 2100 TONIGHT. PT STATES THAT SHE IS REFUSING A SHOWER BECAUSE SHE IS TOO PAINFUL, DISCUSSED WITH THAT PT FEELS SHE IS NOT GETTING ENOUGH PAIN CONTROL. AWARE. PT ALSO DISCUSSING WHAT SHE IS THINKING IN REGARDS TO HER DISCUSSION WITH ABOUT HER CODE STATUS. IT SEEMS THAT THE PT IS LEANING TOWARDS NO CPR BUT IS STILL THINKING ABOUT WHAT SHE WANTS IN THE WAY OF INTUBATION
--- NOTE | 2020-02-29 20:00 | NUR ---
PATIENT RESTING QUIETLY IN BED ON 1L/NC. RESPIRATIONS SHALLOW, BUT NOT LABORED. EYES CLOSED. CALL LIGHT IN REACH.
--- NOTE | 2020-02-29 21:53 | NUR ---
PATIENT WAS HAVING 8/10 ABD PAIN AFTER WALKING TO THE BATHROOM AND BACK WITH 1PSBA AND FWW AND WAS GIVEN 7.5MG PO OXYCODONE. PATIENT RESTING QUIETLY AT THIS TIME. CALL LIGHT IN REACH.
--- NOTE | 2020-02-29 23:32 | NUR ---
ANSWERED CALL LIGHT. 1PA/SBA TO THE BATHROOM USING WALKER. PATIENT VOIDED UNMEASURED. PATIENT IS BACK IN BED. CALL LIGHT WITHIN REACH.
--- NOTE | 2020-02-29 23:36 | NUR ---
PATIENT RESTING QUIETLY SUPINE ON 1L/NC AND BREATHING EVEN, BUT SHALLOW. EYES ARE CLOSED AND CALL LIGHT IN REACH.
--- NOTE | 2020-03-01 01:17 | NUR ---
PATIENT RESTING ON HER RIGHT SIDE, EYES CLOSED RESPIRATIONS EVEN, BUT SHALLOW, CALL LIGHT IN REACH AND O2 ON.
--- NOTE | 2020-03-01 03:16 | NUR ---
PATIENT RRESTING ON HER RIGHT SIDE WITH O2 ON AND EYES CLOSED. RESPIRATIONS SHALLOW, BUT EVEN. CALL LIGHT IN REACH.
--- NOTE | 2020-03-01 03:52 | NUR ---
PATIENT UP TO THE BATHROOM WITH FWW AND 1PSBA, VOIDED AND WENT BACK TO BED. O2 STILL AT 1L/NC, SCD'S ON, ABD AND BACK PAIN 04/20 AND PATIENT GIVEN 7.5MG PO OXYCODONE. CALL LIGHT IN REACH.
--- NOTE | 2020-03-01 04:31 | NUR ---
PATIENT'S STATUS REALLY HAS NOT CHANGED FOR ME FOR THE LAST SEVERAL NIGHTS. SHE HAS NEEDED OXYCODONE X2 THIS SHIFT FOR 8/10 ABD/BACK PAIN AFTER GETTING UP AND USING THE BATHROOM ALTHOUGH THE DOSE WAS INCREASED TO 7.5MG TODAY. PATIENT GOES RIGHT BACK TO SLEEP AFTER GETTING PAIN MEDICATION. REMAINS ON 1L/NC AT 91-93% O2 SATS. SCD'S REMAIN IN PLACE. EMMANUEL IV REMAINS IN PLACE AND FLUSHES AND DRAWS. IT IS HEPRIN LOCKED AT THIS TIME. PATIENT RESTING QUIETLY WITH EQUAL AND EVEN RESPIRATIONS. CALL LIGHT IN REACH.
--- NOTE | 2020-03-01 07:15 | NUR ---
received report from jaspal cordero. pt appears to be resting at this time with respirations noted and call light within reach
--- NOTE | 2020-03-01 08:15 | NUR ---
IN PTS ROOM TO DO MORNING ASSESSMENT AND GIVE MEDS. PROVIDED PT WITH 7.5MG OF OXY. DISCUSSED WITH PT THAT RISA RADFORD WOULD LIKE TO HAVE PT SHOWER TODAY. DISCUSSED WITH PT THAT IN ABOUT AN HOUR (0930) PT SHOULD TAKE A VINYL TOP INSTALLER, PT STATES THAT SHE WOULD LIKE TO TAKE A SHOWER IN 2 HOURS (1030) DISCUSSED WITH PT THAT THIS RN WILL LET RISA RADFORD KNOW THAT PT WANTS TO TAKE A SHOWER AT DISCUSSED TIME. DISCUSSED THIS PLAN WITH RISA RADFORD
--- NOTE | 2020-03-01 11:28 | NUR ---
CAME IN AND PATIENT WAS IN HER CHAIR WITH HER FIT UP SLEEPING. WHILE I WAS IN HER SHE WOKE UP AND WE WENT IN AND GAVE HER A SHOWER. NOW SHE IS IN BED SLEEPING. WITH TWO WARM BLANKETS ON.
--- NOTE | 2020-03-01 13:22 | NUR ---
PATIENT IS SLEEPING.
--- NOTE | 2020-03-01 15:37 | NUR ---
IN PTS ROOM TO DO ASSESSMENT AND CHECK TO SEE IF PT NEEDED MORE PAIN MEDS. PROVIDED PT WITH 7.5MG OXY PER PT REQUEST
[2020-03-01] MEDS ORDERED: XIFAXAN550 MG PO (17:30)
[2020-03-01] MEDS ORDERED: SPIRONOLACTONE25 MG PO (17:32)
[2020-03-01] MEDS ORDERED: NICOTINE PATCH1 EACH TD (17:32)
[2020-03-01] MEDS ORDERED: OXYCODONE HCL5 MG PO (17:33)
[2020-03-01] MEDS ORDERED: LACTULOSE20 GM/30 M PO (17:34)
[2020-03-01] MEDS ORDERED: FAMOTIDINE20 MG PO (17:35)
[2020-03-01] MEDS ORDERED: VITAMIN B-1100 M1 PO (17:35)
--- NOTE | 2020-03-01 19:00 | NUR ---
REPORT RECEIVED FROM OFFGOING RNROEL.
--- NOTE | 2020-03-01 20:14 | NUR ---
PT ASSESSMENT COMPLETE. PT RATES PAIN 8.10 TO ABDOMEN AND BACK, PT UNDERSTANDS THAT PRN PAIN MEDCIATION IS NOT YET AVAILABLE. PT DENIES NAUSEA OR SOB. LUNG SOUNDS WITH RHONCI THROUGHOUT, PT COUGHS WHEN PROMPTED TO TAKE DEEP BREATH. RHONCI DO NOT CLEAR WITH COUGH. PT REPORTS SLIGHT SPUTUM PRODUCTION. O2 IN PLACE AT 1LPM VIA NC. BT'S ACTIVE. ABD TENDER TO PALPATION. ASCITES PRESENT. PT REPORTS NUMBNESS TO L HAND, OPTHERWISE CMS INTACT. PT UP TO BR WITH 1 PA. TOLERATED WELL. ATTENDS CHANGED DUE TO INCONTINENCE. PT FALLS TO SLEEP EASILY WHILE MILL OPERATOR HELPER CHARTING AT BEDSIDE. DENIES FURTHER NEEDS. CALL LIGHT IN REACH.
--- NOTE | 2020-03-01 23:45 | NUR ---
PT UP TO USE THE BATHROOM AND BACK TO BED WITH SBA, TOLERATED WELL. DENIES FURTHER NEEDS AT THIS TIME. CALL LIGHT WITHIN REACH.
--- NOTE | 2020-03-02 00:15 | NUR ---
PT RESTING IN BED, LYING ON HER BACK, WITH EYES CLOSED. RESPIRATIONS EVEN AND UNLABORED. PT APPEARS TO BE SLEEPING. DOES NOT WAKE WHILE WAREHOUSE RECORD CLERK AT [employer]. CALL LIGHT IN REACH.
--- NOTE | 2020-03-02 00:53 | NUR ---
PATIENT CALLED TO USE THE BATHROOM. SBA . PATIENT IS BACK IN BED. CALL LIGHT IN REACH. NO OTHER NEEDS AT THIS TIME.
--- NOTE | 2020-03-02 02:05 | NUR ---
PT RESTING IN BED WITH EYES CLOSED. RESPIRATIONS EVEN AND UNLABORED. PT APPEARS TO BE SLEEPING. CALL LIGHT IN REACH.
--- NOTE | 2020-03-02 03:14 | NUR ---
CALL LIGHT ANSWERED. PT UP TO BR WITH SBA TO VOID AND HAVE MED LOOSE BOWEL MOVEMENT. GAIT STEADY. BACK TO BED, JACQUE WELL. PT REQUESTING PAIN MED. PRIMARY RN NOTIFIED.
--- NOTE | 2020-03-02 04:08 | NUR ---
PT ASSESSMENT COMPLETE. PT RATES PAIN 8/10 TO BACK AND ABDOMEN. PRN ADMINSITERED. SEE EMAR. PT DENIES SOB OR NAUSEA. RHONCI AUSCULTATED IN ALL LUNG GALLEGOS, DO NOT CLEAR WITH COUGH. PT CONTINUES TO REPORT PRODUCTIVE COUGH. ABDOMEN WITH ASCITES, TENDER TO PALPATION. BT'S ACTIVE. EDEMA TO BLE'S 2+ PITTING. PT DENIES FURTHER NEEDS AT THIS TIME. CALL LIGHT IN REACH.
--- NOTE | 2020-03-02 06:33 | NUR ---
FAXED UPDATED CLINICALS TO [facility] FOR PROBABLE D/C TODAY TO FACILITY. FAX CONFIRMATION RECEIVED 0645AM.
--- NOTE | 2020-03-02 07:10 | NUR ---
RECEIVED REPORT FROM SHWETA VILLALOBOS. PT APPEARS TO BE RESTING COMFORTABLY WITH RESPIRATIONS NOTED AT THIS TIME
--- NOTE | 2020-03-02 09:48 | NUR ---
PATIENT WAS UP IN CHAIR FOR BREAKFAST, PATIENT ATE A GOOD AMOUNT, PATIENT REQUESTED TO GO BACK TO BED
--- NOTE | 2020-03-02 11:40 | NUR ---
ORDERS DONE FOR SNF. PASSR GIVEN TO [employer]Y CELL BATTERY ASSEMBLER WHO WILL FAX PACKET TO [facility].
--- NOTE | 2020-03-02 13:54 | NUR ---
SPOKE WITH USER INTERFACE DEVELOPER FROM [facility] WHO STATES PATIENT ORDERS ARE ACCEPTED AND WE CAN ARRANGE TRANSPORTATION. STAFF UPDATED.
--- NOTE | 2020-03-02 14:13 | NUR ---
PT SITTING IN CHAIR-SEEMS MORE ORIENTED AND AWARE TODAY. PT THANKED ME FOR COMING BY, GAVE HER A G.POST AND BLESSING
--- NOTE | 2020-03-02 14:13 | NUR ---
THIS RN CALLED [facility] TO GIVE REPORT TO PACO VILLALOBOS IN REGARDS TO THE PT. DISCUSSED WITH THIS RN TO CALL BACK TO THE HOSPITAL IF THEY HAVE ANY FURTHER QUESTIONS
== END 2020-03-02 14:15 | DRG 441 ==
LOC: ED 16:12 → CCU 22:17 → MS 02-24 18:35
PROVIDERS: ADMIT Internal Medicine
DX: K71.10 Toxic liver disease with hepatic necrosis, without coma (principal); J96.01 Acute respiratory failure with hypoxia; F11.20 Opioid dependence, uncomplicated; B37.81 Candidal esophagitis; I50.30 Unspecified diastolic (congestive) heart failure; T37.8X5A Adverse effect of other specified systemic anti-infectives and antiparasitics, initial encounter; K74.60 Unspecified cirrhosis of liver; B18.2 Chronic viral hepatitis C; J41.8 Mixed simple and mucopurulent chronic bronchitis; F17.200 Nicotine dependence, unspecified, uncomplicated; F39 Unspecified mood [affective] disorder; G89.4 Chronic pain syndrome; Z20.828 Contact with and (suspected) exposure to other viral communicable diseases; E83.42 Hypomagnesemia; D69.6 Thrombocytopenia, unspecified; R19.02 Left upper quadrant abdominal swelling, mass and lump; R19.01 Right upper quadrant abdominal swelling, mass and lump; Z66 Do not resuscitate; Z88.1 Allergy status to other antibiotic agents; Z88.5 Allergy status to narcotic agent; Z79.82 Long term (current) use of aspirin; Z79.51 Long term (current) use of inhaled steroids; Z79.899 Other long term (current) drug therapy
CPT/HCPCS: 36415; 36600; 51701; 71045; 74018; 74176; 80048; 80053; 80074; 80076; 81001; 82140; 82533; 82803; 82977; 83615; 83735; 83880; 84100; 84484; 85025; 85610; 93005; 93010; 93306; 93971; 94640; 94760; 97110; 97116; 97163; 97165; 97530; 97535; 99285-25; 99406; C9803; J1650; J1940; J3475; J3490; U0002